=== PATIENT | female | born 1960 | race African-American/Black ===

== ENCOUNTER 2023-01-19 19:43 | Emergency (ER) | payer OTHER ==
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
[2023-01-19] MEDS ORDERED: KETOROLAC 30 MG/ML INJ ONE (20:47)
[2023-01-19] MEDS ORDERED: DIAZEPAM 5 MG TABLET ONE (20:47)
--- NOTE | 2023-01-19 21:36 | RAD REPORT ---
EXAM DESCRIPTION: CT - [id number] - 01/19/2023 9:02 pm CLINICAL HISTORY: FALL INJURY COMPARISON: No comparisons TECHNIQUE: Axial thin cut noncontrast CT images of the head were obtained. Axial thin cut noncontrast CT images of the cervical spine were obtained. Multiplanar reformatted images were generated and reviewed. All CT scans are performed using dose optimization technique as appropriate and may include automated exposure control or mA/KV adjustment according to patient size. FINDINGS: CT HEAD WITHOUT CONTRAST: No acute hemorrhage, hydrocephalus or extra-axial collection is identified.No areas of brain edema or midline shift. The paranasal sinuses and mastoids are clear.The calvarium is intact. CT CERVICAL SPINE WITHOUT CONTRAST: No fracture or subluxation.Mild multilevel degenerative changes. Mild bilateral neural foraminal narr owing secondary to endplate spurring at C6-7. Straightening of normal cervical lordosis which may be positional or secondary to muscle spasm.No prevertebral soft tissues swelling is identified. IMPRESSION: No acute traumatic intracranial or cervical spine findings.
[2023-01-19 21:55] VITALS: BP 159/80; TEMP 98.3; O2SAT 100
== END 2023-01-19 21:47 | disposition home or self-care (01) ==
LOC: ER 19:43
DX: S09.90XA Unspecified injury of head, initial encounter (principal); R29.91 Unspecified symptoms and signs involving the musculoskeletal system; V49.40XA Driver injured in collision with unspecified motor vehicles in traffic accident, initial encounter; F17.210 Nicotine dependence, cigarettes, uncomplicated
CPT/HCPCS: 70450; 72125; 96372; 99284

== ENCOUNTER 2023-01-26 05:10 | Emergency (ER) | payer SELFPAY ==
[2023-01-26] MEDS ORDERED: HYDROCODONE/APAP 10/325 TAB ONE (06:22)
[2023-01-26] MEDS ORDERED: CEPHALEXIN 250 MG CAP ONE (06:22)
--- NOTE | 2023-01-26 06:33 | ER ---
Nurse's Notes [facility] Name: Sarah Arce Age: 62 yrs Sex: Female : 1960 Arrival Date: 01/26/2023 Time: 05:10 Bed 5 Private MD: Diagnosis: Cellulitis of buttock Presentation: 01/26 05:33 Chief complaint: Patient states: left buttock and rectal pain since Monday no relief kl with Ibuprofen. Coronavirus screen: Vaccine status:. Ebola Screen: Patient negative for fever greater than or equal to 101.5 degrees Fahrenheit, and additional compatible Ebola Virus Disease symptoms. Initial Sepsis Screen: Does the patient meet any 2 criteria? No. Patient's initial sepsis screen is negative. Does the patient have a suspected source of infection? No. Patient's initial sepsis screen is negative. Risk Assessment: Do you want to hurt yourself or someone else? Patient reports no desire to harm self or others. 05:33 Method Of Arrival: Ambulatory kl 05:33 Acuity: BRIAN 3 kl Triage Assessment: 05:36 General: Appears uncomfortable, Behavior is cooperative, anxious. Pain: Complains of kl pain in gluteal cleft and left gluteus lgoria Pain currently is 10 out of 10 on a pain scale. Historical: - Allergies: 05:35 No Known Allergies; kl - PMHx: 05:35 None; kl - PSHx: 05:35 None; kl - Immunization history:: Adult Immunizations not immunized. - Social history:: Smoking status: Patient reports the use of cigarette tobacco products, denies chronic smoking, but will smoke occasionally. Screenin:06 [facility] ED Fall Risk Assessment (Adult) History of falling in the last 3 months, lg3 including since admission No falls in past 3 months (0 pts). Abuse screen: Denies threats or abuse. Denies injuries from another. Nutritional screening: No deficits noted. Tuberculosis screening: No symptoms or risk factors identified. Assessment: 06:06 General: Appears in no apparent distress. uncomfortable, Behavior is calm, cooperative. lg3 Pain: Complains of pain in buttocks Noted to be guarding, resistant to movement. Neuro: No deficits noted. Soto Agitation-Sedation Scale (RASS): 0 - Alert and Calm Level of Consciousness is awake, alert, obeys commands, Oriented to person, place, time, situation. Cardiovascular: No deficits noted. Denies chest pain, shortness of breath, Capillary refill < 3 seconds Clubbing of nail beds is absent JVD is absent Patient's skin is warm and dry. Respiratory: No deficits noted. Airway is patent Respiratory effort is even, unlabored, Respiratory pattern is regular, symmetrical. GI: No deficits noted. No signs and/or symptoms were reported involving the gastrointestinal system. Abdomen is round non-distended. : No deficits noted. No signs and/or symptoms were reported regarding the genitourinary system. EENT: No deficits noted. No signs and/or symptoms were reported regarding the EENT system. Derm: Reports increased pain that is 10 out of 10 on a pain scale. Derm:. Musculoskeletal: No deficits noted. No signs and/or symptoms reported regarding the musculoskeletal system. Circulation, motion, and sensation intact. Range of motion: intact in all extremities. 06:37 Reassessment: Patient appears in no apparent distress at this time. No changes from lg3 previously documented assessment. Patient and/or family updated on plan of care and expected duration. Pain level reassessed. Patient is alert, oriented x 3, equal unlabored respirations, skin warm/dry/pink. Vital Signs: 05:33 BP 133 / 79; Pulse 88; Resp 18; Temp 99.8; Pulse Ox 97% ; Weight 81.65 kg; Height 5 ft. kl 1 in. ; Pain 10/10; 06:37 BP 126 / 84; Pulse 81; Resp 18 S; Pulse Ox 98% on R/A; lg3 05:33 Body Mass Index 34.01 (81.65 kg, 154.94 cm) kl 05:33 Pain Scale: Adult kl ED Course: 05:12 Patient arrived in ED. mr 05:28 Johnny Chatman MD is Attending Physician. kdr 05:35 Triage completed. kl 06:01 Maxine Bhakta RN is Primary Nurse. kd3 06:06 Patient has correct armband on for positive identification. Placed in gown. Bed in low lg3 position. Call light in reach. Side rails up X 1. Client placed on continuous cardiac and pulse oximetry monitoring. NIBP monitoring applied. Door closed. Noise minimized. Warm blanket given. 06:06 Patient maintains SpO2 saturation greater than 95% on room air. lg3 06:36 Extremity Nonvascular Limited In Process Unspecified. EDMS 06:37 No provider procedures requiring assistance completed. Patient did not have IV access lg3 during this emergency room visit. 06:38 Arm band placed on right wrist. lg3 Administered Medications: 06:14 Drug: [place] PO 10 mg-325 mg 1 tabs Route: PO; kl 06:37 Follow up: Response: No adverse reaction; Marked relief of symptoms lg3 06:15 Drug: Cephalexin PO 500 mg Route: PO; kl 06:37 Follow up: Response: No adverse reaction lg3 Medication: 06:38 VIS not applicable for this client. lg3 Outcome: 06:32 Discharge ordered by . kdr 06:38 Discharged to home ambulatory. lg3 06:38 Condition: stable 06:38 Discharge instructions given to patient, Instructed on discharge instructions, follow up and referral plans. medication usage, Demonstrated understanding of instructions, follow-up care, medications, Prescriptions given X 2. 06:38 Patient left the ED. lg3 Signatures: Dispatcher [employer] EDTracy Allred, Johnny Arenas RN, MD MD kdr Rivera, Mary mr Gibson, Lacie RN RN lg3 Maxine Bhakta RN RN kd3
--- NOTE | 2023-01-26 06:33 | EDPHYS ---
Physician Documentation [facility] Name: Sarah Arce Age: 62 yrs Sex: Female : 1960 Arrival Date: 01/26/2023 Time: 05:10 Bed 5 Private MD: ED Physician Johnyn Chatman HPI: 01/26 06:25 This 62 yrs old Black Female presents to ER via Ambulatory with complaints of Swelling. kdr 06:25 Patient complains of right buttock pain that started last Monday. Patient is attempted kdr pain relief with ibuprofen without success. She has not had anything before like this. She denies fever, nausea or vomiting.. Onset: The symptoms/episode began/occurred gradually, Last Monday. Severity of symptoms: At their worst the symptoms were mild moderate just prior to arrival, in the emergency department the symptoms are unchanged. The patient has not experienced similar symptoms in the past. The patient has not recently seen a physician. Historical: - Allergies: 05:35 No Known Allergies; kl - PMHx: 05:35 None; kl - PSHx: 05:35 None; kl - Immunization history:: Adult Immunizations not immunized. - Social history:: Smoking status: Patient reports the use of cigarette tobacco products, denies chronic smoking, but will smoke occasionally. ROS: 06:25 Constitutional: Negative for fever, chills, and weight loss, Eyes: Negative for injury, kdr pain, redness, and discharge, Neck: Negative for injury, pain, and swelling, Cardiovascular: Negative for chest pain, palpitations, and edema, Respiratory: Negative for shortness of breath, cough, wheezing, and pleuritic chest pain. 06:25 Skin: Positive for cellulitis, erythema, swelling, of the gluteal cleft and right gluteus gloria. Exam: 06:25 Constitutional: This is a well developed, well nourished patient who is awake, alert, kdr and in no acute distress. Head/Face: Normocephalic, atraumatic. Eyes: Pupils equal round and reactive to light, extra-ocular motions intact. Lids and lashes normal. Conjunctiva and sclera are non-icteric and not injected. Cornea within normal limits. Periorbital areas with no swelling, redness, or edema. 06:25 Skin: induration, that is mild is noted, that is moderate is noted, located on the gluteal cleft. Vital Signs: 05:33 BP 133 / 79; Pulse 88; Resp 18; Temp 99.8; Pulse Ox 97% ; Weight 81.65 kg; Height 5 ft. kl 1 in. ; Pain 10/10; 06:37 BP 126 / 84; Pulse 81; Resp 18 S; Pulse Ox 98% on R/A; lg3 05:33 Body Mass Index 34.01 (81.65 kg, 154.94 cm) kl 05:33 Pain Scale: Adult kl MDM: 06:25 Data reviewed: vital signs, nurses notes, lab test result(s), radiologic studies. kdr 06:31 ED course: The ultrasound of the buttock area showed indurated tissue but no abscess. kdr 06:32 Patient medically screened. kdr 01/26 06:36 Order name: Extremity Nonvascular Limited EDMS Administered Medications: 06:14 Drug: [place] PO 10 mg-325 mg 1 tabs Route: PO; kl 06:37 Follow up: Response: No adverse reaction; Marked relief of symptoms lg3 06:15 Drug: Cephalexin PO 500 mg Route: PO; kl 06:37 Follow up: Response: No adverse reaction lg3 Disposition Summary: 01/26/23 06:32 Discharge Ordered Location: Home kdr Problem: new kdr Symptoms: have improved kdr Condition: Stable kdr Diagnosis - Cellulitis of buttock kdr Followup: kdr - With: Private Physician - When: 2 - 3 days - Reason: If symptoms return, Further diagnostic work-up, Recheck today's complaints, Continuance of care, Re-evaluation by your physician Discharge Instructions: - Discharge Summary Sheet kdr - Cellulitis, Adult, [id number] kdr Forms: - Medication Reconciliation Form kdr - Thank You Letter kdr - Antibiotic Education kdr - Prescription Opioid Use kdr - Patient Portal Instructions kdr - Leadership Thank You Letter kdr Prescriptions: - Cephalexin 500 mg Oral Capsule - take 1 capsule by ORAL route every 6 hours for 10 days; 40 capsule; Refills: 0, kdr Product Selection Permitted - Tramadol 50 mg Oral Tablet - take 1 tablet by ORAL route every 8 hours as needed; 12 tablet; Refills: 0, kdr Product Selection Permitted Signatures: [facility]patcher [facility] Tracy Francis RN RN kl Rittger, Kevin, MD MD kdr Gibson, Lacie RN lg3 Corrections: (The following items were deleted from the chart) 06:36 06:06 Abdomen Limited+US.SAHRA.VERONICA ordered. EDMS EDMS
[2023-01-26 06:42] VITALS: BP 133/79; TEMP 99.8; O2SAT 97
--- NOTE | 2023-01-26 07:25 | RAD REPORT ---
EXAM DESCRIPTION: US - Extremity Nonvascular Limited - 01/26/2023 6:35 am CLINICAL HISTORY: Right buttock pain COMPARISON: None. TECHNIQUE: Real-time sonographic evaluation of the right gluteal region superficial soft tissues. FINDINGS: Mild to moderate edema and subcutaneous fat hyperechogenicity in the area of concern. A sm all linear hypoechoic tract extends from the hypo dermis into the deeper subcutaneous soft tissues co mmon measuring up to 2 millimeter in thickness. This could relate to edema or a tiny developing phleg mon. No discrete communication with the skin. No other suspicious fluid collections. IMPRESSION: Up to moderate swelling and edema in the right buttock area of concern. Linear small tract, may relate to edema or a tiny developing phlegmon. No other abnormal fluid collec tions.
== END 2023-01-26 06:38 | disposition home or self-care (01) ==
LOC: ER 05:10
DX: L03.317 Cellulitis of buttock (principal)
CPT/HCPCS: 76882; 99284